=== PATIENT | male | born 1990 | race Caucasian/White ===

== ENCOUNTER 2024-12-21 18:50 | Emergency (ER) | payer OTHER ==
[~2024-12-21] VITALS: Ht 165.1 cm; Wt 87.5 kg
[2024-12-21 19:49] LABS: BASOPHILS 1.7 % (0-2); EOSINOPHILS 6.8 % (0-6); HEMATOCRIT 44.8 % (35.0-50.0); HEMOGLOBIN 15.7 g/dL (12.0-18.0); LYMPHOCYTES 38.9 % (24-44); MCH 31.4 (27-36); MCHC 35.1 g/dl (30-36); MCV 89.5 fl (81-99); MONOCYTES 10.2 % (0-12); NEUTROPHILS 42.4 % (39-80); PLATELET COUNT 311 K/uL (140-440)
[2024-12-21 20:04] LABS: ALBUMIN 3.9 g/dL (3.4-5.0); ALBUMIN/GLOBULIN RATIO 1.11 (1.1-2.4); ANION GAP 8.3 (7-21); BILIRUBIN, TOTAL 0.4 mg/dL (0.2-1.0); BUN/CREATININE RATIO 13.33 (6.0-28.6); CALCIUM 8.5 mg/dL (8.5-10.1); CREATININE, SERUM 1.05 mg/dL (0.70-1.30); POTASSIUM 4.3 mmol/L (3.5-5.1); PROTEIN, TOTAL 7.4 g/dL (6.4-8.2)
[2024-12-21 21:04] VITALS: BP 137/86
== END 2024-12-21 21:07 | disposition home or self-care (01) ==
LOC: ED 18:50
PROVIDERS: Family Medicine
DX: K62.3 Rectal prolapse (principal); J45.909 Unspecified asthma, uncomplicated
CPT/HCPCS: 36415; 80053; 83605; 85025; 99283

== ENCOUNTER 2025-01-26 11:00 | Observation (INO) | payer OTHER ==
[~2025-01-26] VITALS: Ht 165.1 cm; Wt 86.5 kg
[2025-01-26 12:16] VITALS: BP 135/79
[2025-01-26] MEDS ORDERED: LACTATED RINGER'S 1,000 ML IV SCH ×2 (12:30→13:00)
[2025-01-26 12:55] LABS: BASOPHILS 1.3 % (0.2-1.2); EOSINOPHILS 2.6 % (0.8-7.0); HEMATOCRIT 45.2 % (40.1-51.0); HEMOGLOBIN 15.7 g/dL (13.7-17.5); LYMPHOCYTES 30.1 % (21.8-53.1); MCH 30.6 PG (25.7-32.2); MCHC 34.7 g/dL (32.3-36.5); MCV 88.1 fL (79.0-92.2); MONOCYTES 9.1 % (5.3-12.2); NEUTROPHILS 56.6 % (34.0-67.9); PLATELET COUNT 286 K/uL (163-337); RBC 5.13 M/uL (4.63-6.08)
[2025-01-26] MEDS ORDERED: FAMOTIDINE 20 MG/ 2 ML VIAL IV SCH (12:58)
[2025-01-26] MEDS ORDERED: POLYETHYLENE GLYCOL 3350 BOTTLE PO SCH (13:00)
[2025-01-26] MEDS ORDERED: KETOROLAC TROMETHAMINE 30 MG/ML VIAL IV PRN (13:00)
[2025-01-26] MEDS ORDERED: ondansetron HCL 4 MG/2 ML VIAL IV PRN (13:00)
--- NOTE | 2025-01-26 13:01 | NUR ---
PT AMBULATED DOWN [facility] WITH TWO GUARDS PRESENT. PT ADMITTED TO ROOM 123 WITH TWO GUARDS PRESENT IN ROOM WITH PT. PT HAS ALREADY SEEN MD ALVARADO DURING ADMISSION AND HAS NO CURRENT QUESTIONS AT THIS TIME, PT HAS CALL LIGHT IN REACH.
[2025-01-26 13:10] LABS: ALBUMIN 4.2 g/dL (3.4-5.0); ALBUMIN/GLOBULIN RATIO 1.27 (1.1-2.4); ANION GAP 10.3 (7-21); BILIRUBIN, TOTAL 0.9 mg/dL (0.2-1.0); BUN/CREATININE RATIO 10.41 (6.0-28.6); CALCIUM 9.1 mg/dL (8.5-10.1); CREATININE, SERUM 0.96 mg/dL (0.70-1.30); POTASSIUM 4.3 mmol/L (3.5-5.1); PROTEIN, TOTAL 7.5 g/dL (6.4-8.2)
--- NOTE | 2025-01-26 13:45 | NUR ---
PATIENT IS FINISHED WITH BOWEL PREP DRINK. WARM BLANKETS PROVIDED.
[2025-01-26 14:00] VITALS: BP 135/79
--- NOTE | 2025-01-26 14:24 | NUR ---
PT LAYING IN BED AT THIS TIME WITH TWO EOCI GUARDS PRESENT. PT HAS NO CURRENT NEEDS WITH CALL LIGHT IN REACH.
--- NOTE | 2025-01-26 15:02 | NUR ---
PT SITTING UP IN BED AT THIS TIME, PT HAS NO CURRENT NEEDS AT THIS TIME. PT HAS TWO EOCI GUARDS PRESENT IN ROOM AT THIS TIME CALL LIGHT IN REACH.
[2025-01-26] MEDS ORDERED: DESITIN57 GM TOP (16:35)
[2025-01-26] MEDS ORDERED: STOOL SOFTENER250 MG PO (16:36)
[2025-01-26] MEDS ORDERED: LMX 515 GM TOP (16:39)
[2025-01-26] MEDS ORDERED: WHITE PETROLE16.8 GM TOP (16:41)
[2025-01-26] MEDS ORDERED: VITAMIN D350 MC3 PO (16:41)
--- NOTE | 2025-01-26 16:41 | NUR ---
PT PROLAPSED RECTUM IS RED AND IRRITATED AFTER BOWEL PREP, PT DOES HAVE PAIN AT THIS TIME BUT DENIES NEED FOR PHARM INTERVENTIONS. PT REQUESTED TO SHOWER AND IS CURRENTLY IN RESTROOM WITH TWO GUARDS PRESENT WITH PT.
[2025-01-26] MEDS ORDERED: VENTOLIN HFA18 GM INH (16:43)
--- NOTE | 2025-01-26 16:44 | NUR ---
MED REC COMPLETE
[2025-01-26 18:00] VITALS: BP 116/70
[2025-01-26 18:25] VITALS: BP 116/70
--- NOTE | 2025-01-26 18:26 | NUR ---
PT SITTING UP IN BED, PT CONTINUES TO HAVE BM WITH BOWEL PREP, PT HAS NO OTHER CONCERNS AT THIS TIME CALL LIGHT IN REACH.
--- NOTE | 2025-01-26 19:11 | NUR ---
RECEIVED REPORT. PT RESTING IN BED WITH EYES CLOSED, RISE AND FALL OF CHEST OBSERVED. CALL LIGHT IN REACH, ACCOMPANYING OFFICERS IN ROOM.
--- NOTE | 2025-01-26 21:15 | NUR ---
PT REQUESTS SHOWER, ASSISTED TO BATHROOM AND GIVEN SHOWER SUPPLIES. IV COVERED. ESCORTING OFFICERS IN ROOM.
[2025-01-26 21:24] VITALS: BP 128/68
[2025-01-26 21:25] VITALS: BP 128/68
--- NOTE | 2025-01-26 21:33 | NUR ---
PATIENT TOOK SHOWER INDEPENDENTLY. 2 GUARDS OFFICER PRESENT IN THE ROOM. PATIENT IS BACK IN BED. V/S AND I&O'S COMPLETED CHARTED BY THE PRIMARY RN.
--- NOTE | 2025-01-26 21:42 | NUR ---
VITALS, ASSESSMENT, EVENING MEDS. PROVIDED WARM BLANKETS AND CLEAR LIQUIDS N REQUEST. NO OTHER NEEDS, CALL MAGALIE DON
--- NOTE | 2025-01-26 23:01 | NUR ---
PT REQUESTED SHOWER, COVERED IV AND PROVIDED TOWELS. ACCOMPANYING OFFICERS IN ROOM
--- NOTE | 2025-01-26 23:20 | NUR ---
PT DONE WITH SHOWER. RE-ATTACHED IV. NO OTHER NEEDS, CALL LGT IN REACH
[2025-01-27] VITALS (9 sets, daily range): BP systolic 119–134; BP diastolic 7–90
--- NOTE | 2025-01-27 00:43 | NUR ---
RESPONDED TO CALL LIGHT. ESCORTING OFFICERS ASK ABOUT WHAT TIME SURGERY IS, GAVE BEST ESTIMATE AND EDUCATED ON PROCEDURE. NO NEEDS AT THIS TIME, CALL [facility] IN REACH
--- NOTE | 2025-01-27 01:21 | NUR ---
GIVEN PRN TORADOL FOR ABDOMINAL PAIN/BLOATING. CHANGED IV FLUIDS. NO OTHER NEEDS, CALL [facility] IN REACH, ENFORCEMENT OFFICERS IN ROOM
--- NOTE | 2025-01-27 02:14 | NUR ---
VITALS, PT REQUESTS SHOWER. GARMENT LOOPER ASSISTED WITH SHOWER SETUP AND COVERED IV.
--- NOTE | 2025-01-27 03:39 | NUR ---
PT ALERT IN BED, NO NEEDS PRESENTLY. CALL LIGHT IN REACH, ACCOMPANYING OFFICERS IN ROOM.
--- NOTE | 2025-01-27 04:31 | NUR ---
RESPONDED TO BEEPING IV, RESTARTED IV. PT ALERT, NO NEEDS. CALL LIGHT IN REACH, GUARDS IN ROOM
--- NOTE | 2025-01-27 06:17 | NUR ---
CHG WIPEDOWN BY PATIENT, CHANGED GOWN AND CLEAN BED LINENS. COMPLETED PRE-OP CHECKLIST. NO OTHER NEEDS, CALL LIGHT IN REACH
--- NOTE | 2025-01-27 06:47 | NUR ---
CRITICAL LAB: WBC 34.78 (DOWN FROM 36.15). NOTIFIED
--- NOTE | 2025-01-27 07:26 | NUR ---
MORNING REPORT RECIEVED FROM EMERY BURTON. PT LAYING IN BED WITH EYES CLOSED CHEST RISE EQUAL BILAT. PT SURGERY CONSENT IS STILL REQUIRED AT THIS TIME. PT HAS TWO EOCI GUARDS IN ROOM AT THIS TIME WITH CALL LIGHT IN REACH.
--- NOTE | 2025-01-27 08:26 | NUR ---
UR CLINICAL REVIEW: MCG-PER MCG ACCOUNT INACTIVE. PER POLE LIFT OPERATOR MEETS OBS FOR RETAL PROLAPSE WITH NEED FOR CSCOPE [facility] OBS 01/26/25 @ 1100 ORDER MATCHES REG NO AUTH REQUIRED PER [facility] GUIDELINES. CLINICALS FAXED 01/28/25
--- NOTE | 2025-01-27 08:30 | NUR ---
PT LEFT FOR SCOPE WITH DARRIAN BARRETT RN. PT OCCOMPANIED BY GUARD. EMERY COLMENARES HAS NO QUESTIONS AT THIS TIME. PT TO RETURN TO SAME ROOM AFTER PROCEDURE.
[2025-01-27] MEDS ORDERED: propofoL 200 MG/20 ML VIAL ONE ×2 (08:32→09:10)
[2025-01-27] MEDS ORDERED: LIDOCAINE HCL 2% 5 ML SDV ONE (08:32)
--- NOTE | 2025-01-27 08:42 | NUR ---
X2 EOCI GUARDS IN THE ROOM. PRE SURGERY HIBA CLEANSE WIPEDOWN COMPLETED BEFORE SHIFT CHANGE. SURGERY TOOK PATIENT NACK AT 0830.
--- NOTE | 2025-01-27 09:33 | NUR ---
01/27/25 0933 Greta Tejeda 0998-PATIENT ARRIVED TO PACU ON 3L NC RR EVEN. PATIENT NONAROUSABLE LAYING LEFT LATERAL ABDOMEN SOFT. IVF INFUSING. SR HR 70-80'S. GUARDS AT BEDSIDE.
[2025-01-27] MEDS ORDERED: fentaNYL citrate 50 MCG/ML SDV IV PRN (09:45)
[2025-01-27] MEDS ORDERED: NALOXONE HCL 0.4 MG SYR IV PRN (09:45)
[2025-01-27] MEDS ORDERED: MIDAZOLAM HCL 2 MG/2 ML VIAL IV PRN (09:45)
[2025-01-27] MEDS ORDERED: ondansetron HCL 4 MG/2 ML VIAL IV PRN (09:45)
[2025-01-27] MEDS ORDERED: IBLOOD GLUCOSE TEST STRIP 1 EA TEST VI PRN (09:45)
--- NOTE | 2025-01-27 10:10 | NUR ---
PT RECIEVED FROM CCU RN. PT TRANSPORTED RA, AND STOOD AND AMBULATED TO BED, PT HAS NO CURRENT CONCERNS AT THIS TIME VITALS STABLE CALL LIGHT IN REACH.
--- NOTE | 2025-01-27 10:52 | NUR ---
PT NOT AVAILABLE FOR VISIT. PROVIDED PRAYER.
--- NOTE | 2025-01-27 11:30 | NUR ---
Texted Dr. Mendes an update as I was notified the infirmary at [facility] is not open as it is being remodeled. I contacted the infirmary and was notified, all pts will go to [facility] in [place] until they reopen.
--- NOTE | 2025-01-27 11:55 | NUR ---
PT LAYING IN BED AT THIS TIME, PT HAS NO CURRENT CONCERNS AT THIS TIME TIME PT HAS LUNCH CLEAR LIX AND CALL LIGHT IN REACH.
--- NOTE | 2025-01-27 12:24 | NUR ---
PT AMBULATED FROM BED TO RESTROOM INDEPENDANTLY PT HAS NO CURRENT CONCERNS CALL LIGHT IN REACH AT THIS TIME
--- NOTE | 2025-01-27 13:13 | HP ---
[facility] [address], [place] [address] Signed ADMISSION DATE: 01/26/2025 REASON FOR ADMISSION: Chronic recurrent rectal prolapse, recently worsening. HISTORY OF PRESENT ILLNESS: This 34-year-old white man is a prisoner at [facility] and has been incarcerated for over 10 years. For the past several years, he has had episodic rectal prolapse. He was seen in the emergency room on December 21, 2024, evaluated by Dr. Lima with complaints of the rectal prolapse. The prolapsed mucosa appeared quite viable and normal and further evaluation was deferred to outpatient management to me in evaluation at the halfway clinic. The patient has profound prolapse of the rectum from time to time, which is associated with significant bleeding as well. The patient has never had colonoscopy or other colon evaluation it is known. I saw him in the halfway clinic setting yesterday where he was noted to have extreme prolapse of hemorrhoidal tissue with violaceous mucosa, excoriation and bleeding. He was able to partially reduce his prolapse with deep inspiration. Consideration was made for direct admission to the hospital yesterday or further close observation in the infirmary at the [facility]. However, as it turns out the infirmary is now closed down for the next four weeks related to need of reconstruction of the bathtub and other similar implements. On that basis, he could not be reliably able to undergo a bowel prep or other intervention at the halfway. Upon reflection, review of his records from his evaluation in December, I recommended direct admit for further evaluation and care. At present, he is feeling better than yesterday, having no blood per rectum and without extreme prolapse as he had yesterday. He has had no nausea or vomiting. The patient notes that when his rectum does prolapse, he has significant and severe bleeding generally speaking. He does not have constipation nor does he have incontinence. PAST MEDICAL HISTORY: Notable for asthma. He does use of bronchodilator episodically. He has never had surgery in the past. Electronically Signed By: MARIE ALVARADO MD 01/27/25 1313 PATIENT NAME: SANDY THOMAS HISTORY AND PHYSICAL DATE OF : [birth year] REPORT #: [id number] PHYSICIAN: MARIE ALVARADO MD PCP: [facility] CORRECTIONAL REPORT IS CONFIDENTIAL AND NOT TO BE RELEASED WITHOUT AUTHORIZATION [facility] [address], [place] [address] Signed CURRENT MEDICATIONS: Include a probable bronchodilator such as albuterol episodically used. His last used it a week ago. SOCIAL HISTORY: Incarcerated at [facility] and has been incarcerated for the past decade nearly. REVIEW OF SYSTEMS: He denies any shortness of breath or wheezing currently. He does have blood per rectum from time to time, particularly worsened with prolapse of the rectum. He has not had intervention of this rectal prolapse problem during his time of incarceration in any way including no colonoscopy. PHYSICAL EXAMINATION: GENERAL: A relatively young-appearing white man. VITAL SIGNS: Temperature is 98.5, pulse 63, blood pressure 135/79. NECK: Trachea is midline. CHEST: Shows normal respiratory excursion. Pulses regular. GENITOURINARY: Lateral decubitus position examination of perineum shows some minimal prolapse right now. The patient was disinclined to produce significant prolapse as he knows it will cause him to have bleeding and some discomfort. I saw his prolapse yesterday and it was profound. It is noted. EXTREMITIES: Show no clubbing, cyanosis, or edema. LABORATORY STUDIES: Today show white count of 7.8, hematocrit 45.2, platelets 286,000. Chem profile is pending. ASSESSMENT: The patient has rather profound rectal prolapse and upon evaluation yesterday was worrisome, possibly freed of an ischemia given the violaceous nature of the prolapsed tissue. Unlike most, it was not pink and viable, but congested, edematous, and violaceous in its appearance. This does not represent simple hemorrhoidal prolapse, but rather true rectal prolapse I am quite confident. Given his bleeding and his complete reduction of his prolapse right now, I would recommend a bowel prep be undertaken today anticipating colonoscopy tomorrow. Definitive treatment in his case will likely include a low anterior resection with possible rectopexy that remains to be determined in part related to findings on colonoscopy. It is important to assure that the problem is, in fact, rectal prolapse and not hemmorhoidal prolapse as the treatment approach is completely different. Electronically Signed By: MARIE ALVARADO MD 01/27/25 1313 PATIENT NAME: SANDY THOMAS HISTORY AND PHYSICAL DATE OF : [birth year] REPORT #: [id number] PHYSICIAN: MARIE ALVARADO MD PCP: [facility]CTION[facility] REPORT IS CONFIDENTIAL AND NOT TO BE RELEASED WITHOUT AUTHORIZATION [facility] [address], [place] [address] Signed Those patients most amenable to a perineal approach (Altemeier procedure) are those who are elderly and infirm as the durability of such resection is less than those who can tolerate definitive transabdominal interventions. Given his relatively young age, one would expect significant longevity and therefore, the most durable and reliable approach would be a transabdominal approach in his casem and would likely be well tolerated also. I discussed these findings with him with use of illustrations and so on. We will plan for a bowel prep today to include MiraLAX and clear liquids anticipating colonoscopy tomorrow. Management beyond that will depend on those findings and be scheduled accordingly. MD BILL Fernandes/EFRENL /[id number] cc: Medical Department [facility] Copies: ~ Electronically Signed By: MARIE ALVARADO MD 01/27/25 1313 PATIENT NAME: SNADY THOMAS HISTORY AND PHYSICAL DATE OF : [birth year] REPORT #: [id number] PHYSICIAN: MARIE ALVARADO MD PCP: [facility] REPORT IS CONFIDENTIAL AND NOT TO BE RELEASED WITHOUT AUTHORIZATION
--- NOTE | 2025-01-27 13:13 | OR ---
[facility] [address] [place], [place] [address] Signed DATE OF OPERATION: 01/26/2025 SURGEON: Marie Alvarado MD PREOPERATIVE DIAGNOSIS: Presumed profound rectal prolapse versus hemorrhoidal prolapse, currently reduced. POSTOPERATIVE DIAGNOSIS: Distal rectal inflammation with hemorrhoidal disease, probable associated rectal prolapse. PROCEDURE: Total colonoscopy to cecum with biopsy of rectum. ANESTHESIA: Intravenous sedation, propofol, Gayathri Rangel CRNA. INDICATION: This 34-year-old white man is a prisoner at [facility], has been for nearly a decade. He has had longstanding episodic rectal prolapse. I saw him [facility] days ago in [facility] where he was found to have significant prolapse of violaceous congested mucosa in a configuration most consistent with rectal prolapse rather than profound hemorrhoidal prolapse. He was admitted yesterday on the basis of those findings. With prolapse, he had a fair amount of rectal bleeding and definitely a fair amount of pain. Quite notably, he has had these symptoms for several years. He does not have associated constipation he says. He has undergone a bowel prep, anticipating colonoscopy to better characterize the current problem as well as any other associated problems including inflammatory bowel disease or other issues. He is now to undergo colonoscopy having undergone a bowel prep yesterday without complication. The risk of bleeding, infection, and perforation related to colonoscopy were reviewed with him. He understands and wished to proceed. FINDINGS: There was some hemorrhoidal prolapse noted. External hemorrhoidal disease specifically. The sphincter tone was reasonably normal actually. Complete colonoscopy was undertaken showing no sign of polyp or lead point. No diverticulosis, but certainly some low level proctitis in the distal rectum and some hemorrhoidal disease as well. The patient may have a combination of hemorrhoidal disease in association with rectal prolapse. Further evaluation to ascertain that there is true rectal prolapse is Electronically Signed By: MARIE ALVARADO MD 01/27/25 1313 PATIENT NAME: SANDY THOMAS OPERATIVE REPORT DATE OF : [birth year] REPORT #: [id number] PHYSICIAN: MARIE ALVARADO MD PCP: [facility] CORRECTIONAL REPORT IS CONFIDENTIAL AND NOT TO BE RELEASED WITHOUT AUTHORIZATION [facility] [address] [place], [place] [address] Signed forthcoming. DESCRIPTION OF PROCEDURE: The patient was brought to the endoscopy suite and placed in lateral decubitus position, given intravenous sedation with propofol infusional technique. Digital rectal exam and external inspection showed some hemorrhoidal changes in the left lateral aspect. Digital examination did elicit some discomfort. Additional sedation helped with that quite a bit. The sphincter tone was considered reasonably normal given his age. An Olympus video colonoscope was then passed in the rectum and manipulated throughout the colon ultimately visualizing the cecum. The scope was withdrawn from that point. Examination throughout showed no sign of abnormality. Retroflexed view of the rectum showed mild distal proctitis. Biopsies were obtained. Internal hemorrhoidal changes were noted as well. The scope was withdrawn, removed, and the patient taken to the recovery room in good condition. CONCLUDING DIAGNOSIS: Distal inflammation and also hemorrhoidal disease. We will ascertain more fully if he has in fact dominantly true rectal prolapse versus a hemorrhoidal prolapse problem later after sedation has worn off. MD BILL Fernandes/EFRENL /[id number] cc: Care of Nurse Medina [facility] Medical Department Copies: ~ Electronically Signed By: MARIE ALVARADO MD 01/27/25 1313 PATIENT NAME: SANDY THOMAS OPERATIVE REPORT DATE OF : [birth year] REPORT #: [id number] PHYSICIAN: MARIE ALVARADO MD PCP: [facility] REPORT IS CONFIDENTIAL AND NOT TO BE RELEASED WITHOUT AUTHORIZATION
--- NOTE | 2025-01-27 13:58 | NUR ---
SURVIVAL EQUIPMENT REPAIRER ASSISTED PATIENT IN WRAPPING IV, AND CHANGED HIS LINENS.
--- NOTE | 2025-01-27 14:11 | NUR ---
PT SITTING UP IN BED AT THIS TIME, PT HAS IV FLUIDS IN PLACE AND CALL LIGHT IN REACH. PT HAS TWO EOCI GAURDS PRESENT IN ROOM.
--- NOTE | 2025-01-27 14:52 | NUR ---
PT SITTING UP IN BED AT THIS TIME. PT ASKED ABOUT WHAT THE POC IS NOW THAT THE SCOPE IS DONE, MD ALVARADO WILL BE BACK LATER TODAY TO INFORM PT OF CONTINUED POC, PT AGREEABLE AT THIS TIME. PT GIVEN MORE CLEAR LIX AND PT HAS CALL LIGHT IN REACH.
--- NOTE | 2025-01-27 15:43 | NUR ---
TWO [facility]URR CALLED ABOUT PT, THEY WERE ASKING ABOUT THE PT DC STATUS, THEY WERE INFORMED THAT MD ALVARADO HAS NOT GIVEN ANY OFFICIAL ORDERS TO DC PT, BUT WILL BE CONTACTED REGARDING THIS, MARIA BURR WAS AGREEABLE AND WILL BE TOLD ONCE ORDERS ARRIVE.
--- NOTE | 2025-01-27 17:10 | NUR ---
PT USED CALL LIGHT AND ASKED FOR MORE CLEAR LIX, PT HAS NO OTHER CONCERNS AT THIS TIME CALL LIGHT IN REACH.
--- NOTE | 2025-01-27 18:06 | NUR ---
PT SITTING UP IN BED WITH TWO EOCI GUARDS PRESENT IN ROOM, PT HAS NO CURRENT NEEDS AT THIS TIME. MD ALVARADO WAS CONTACTED AND PT WILL BE DISCHARGED TONIGHT. PT WILL BE NOTIFIED BY MD ALVARADO HIMSELF ONCE MD ALVARADO RETURNS FROM SURGERY.
[2025-01-27] MEDS ORDERED: METRONIDAZOLE500 MG PO (18:35)
[2025-01-27] MEDS ORDERED: NEOMYCIN SULFA500 MG PO (18:37)
--- NOTE | 2025-01-28 09:33 | DS ---
[facility] [address] [place], [place] [address] Signed ADMISSION DATE: 01/26/2025 DISCHARGE DATE: 01/27/2025 REASON FOR ADMISSION: Rectal prolapse. HISTORY OF PRESENT ILLNESS: This 34-year-old white man is a prisoner at [facility] and has been incarcerated for at least 10 years. He has had several years of apparent rectal prolapse. I saw him in the long term clinic the day before current admission. He had profound rectal prolapse with violaceous, edematous, and episodically bleeding rectal prolapse. I asked for him to be taken to the hospital for direct admission as the infirmary at [facility] right now is unable to accommodate patients for preparations for interventions. He is admitted at this time to have further evaluation of his rectal prolapse to include colonoscopy and other interventions. PERTINENT PHYSICAL EXAMINATION: GENERAL: Pleasant white man, who did not look to be in severe distress. VITAL SIGNS: Temperature is 97.9, pulse 77, blood pressure 124/69. NECK: Trachea in midline. CHEST: Clear. HEART: Regular without murmur. ABDOMEN: Soft, nontender. The rectal prolapse seen in 24 hours previously was completely reduced. There was a small amount of hemorrhoidal tissue, but no sign of prolapse. He had minimal tenderness. HOSPITAL COURSE: He was admitted, given intravenous fluids, and anticipating a probability for definitive resection or rectopexy by an abdominal approach, colonoscopy was planned. A bowel prep was undertaken, which he tolerated well. Colonoscopy was undertaken on January 27, 2025, which showed no evidence of neoplasm or other process it might form as a lead point for rectal prolapse. The patient was able to demonstrate his rectal prolapse by volition and able to reduce this fully also. It is notable when he has significant prolapse, the mucosa is markedly edematous and violaceous and easily prone to bleeding. Recall of the colonoscopy did not show a lead point, but did show some internal hemorrhoidal change as well. Given the logistics of his need for somewhat lengthy operation, possibly operation is planned for later in the week. He will be discharged to the long term with clear liquids and Ensure for diet and anticipate oral antibiotics the night prior to surgery including Electronically Signed By: MARIE ALVARADO MD 01/28/25 0933 PATIENT NAME: SANDY THOMAS DISCHARGE SUMMARY DATE OF : [birth year] REPORT #: [id number] PHYSICIAN: MARIE ALVARADO MD PCP: [facility] CORRECTIONAL REPORT IS CONFIDENTIAL AND NOT TO BE RELEASED WITHOUT AUTHORIZATION [facility] [address] [place], [place] [address] Signed Flagyl 500 mg and neomycin base 1 g p.o. at 2 p.m., 7 p.m., and 11 p.m. He will be n.p.o. after midnight and present on Saturday morning for operation to be performed then. I discussed the operation with him, though not the date or time obviously. DISCHARGE DIAGNOSES: 1. Profound rectal prolapse, not currently with ischemic change, episodic bleeding. 2. Colonoscopy with some internal hemorrhoidal change, no evidence of neoplasm. 3. Reactive airways disease. DISCHARGE MEDICATIONS: 1. Flagyl 500 mg. 2. Neomycin base 1 g p.o. at 2 p.m., 7 p.m., and 11 p.m. Saturday. He will maintain clear liquid diet. MD BILL Fernandes/EFRENL /[id number] cc: Medical Department at [place], [place] Copies: ~ Electronically Signed By: MARIE ALVARADO MD 01/28/25 0933 PATIENT NAME: SANDY THOMAS DISCHARGE SUMMARY DATE OF : [birth year] REPORT #: [id number] PHYSICIAN: MARIE ALVARADO MD PCP: [facility]CTION[facility] REPORT IS CONFIDENTIAL AND NOT TO BE RELEASED WITHOUT AUTHORIZATION
--- NOTE | 2025-01-29 16:45 | PATH ---
[facility] [address] [facility] [place], [place] [address] Signed SPECIMEN(S): A RECTUM BIOPSY SPECIMEN SOURCE: A. RECTUM BIOPSY CLINICAL HISTORY: Chronic recurrent rectal prolapse. Post: Hemorrhage disease-proctitis. FINAL PATHOLOGIC DIAGNOSIS: Rectum biopsy: - Benign colonic mucosa, negative for specific diagnostic abnormality. JVR:[facility] MICROSCOPIC EXAMINATION: Histologic sections of all submitted blocks are examined by light microscopy. These findings, together with the gross examination, support the pathologic diagnosis. GROSS DESCRIPTION: The specimen, labeled and designated "Shilpi rectum biopsy," is received in formalin and consists of one enciso soft tissue fragment, 0.2 cm. Entirely submitted in (A1). JS (under the direct supervision of a pathologist) The Gross Description was prepared using a voice recognition system. The report was reviewed for accuracy; however, sound-alike word errors, addition and/or deletions may occur. If there is any question about this report, please contact Client Services. PERFORMING LABORATORY: The technical preparation was performed by [facility], [address] [place] [address] (CLIA#: [id number]). Professional interpretation [facility] by [facility], [address] [place] [phone] (CLIA#: [id number]). Diagnostician: Thanh Ray MD Pathologist Electronically Signed 01/29/2025 Copies: PATIENT NAME: SANDY THOMAS PATHOLOGY DATE OF : [birth year] REPORT #: [id number] PHYSICIAN: JOSÉ MIGUEL PATHOLOGY PCP: [facility] COR[facility]CTIONAL REPORT IS CONFIDENTIAL AND NOT TO BE RELEASED WITHOUT AUTHORIZATION [address] [address] Signed ~ PATIENT NAME: SANDY THOMAS PATHOLOGY DATE OF : [birth year] REPORT #: [id number] PHYSICIAN: JOSÉ MIGUEL PATHOLOGY PCP: [facility] REPORT IS CONFIDENTIAL AND NOT TO BE RELEASED WITHOUT AUTHORIZATION
== END 2025-01-27 18:50 | disposition home or self-care (01) ==
LOC: MS 11:00 → EDSTATUS 12:53 → MS 01-27 18:50
PROVIDERS: ADMIT Surgery; ATTEND Surgery
PROC: 0DBP8ZX Excision of Rectum, Via Natural or Artificial Opening Endoscopic, Diagnostic (ICD-10-PCS; principal; 2025-01-26)
DX: K64.8 Other hemorrhoids (principal); K64.4 Residual hemorrhoidal skin tags
CPT/HCPCS: 00811; 36415; 80053; 85025; 94799; J1885; J2003; J2704; J7121

== ENCOUNTER 2025-01-29 08:40 | Observation (INO) | payer OTHER ==
[2025-01-29] VITALS (8 sets, daily range): BP systolic 123–147; BP diastolic 65–100
[~2025-01-29] VITALS: Ht 165.1 cm; Wt 85.5 kg
--- NOTE | ~2025-01-29 | DS ---
[facility] [address], [place] [address] Draft ADMISSION DATE: 01/29/2025 DISCHARGE DATE: 02/01/2025 REASON FOR ADMISSION: Profound rectal prolapse. HISTORY OF PRESENT ILLNESS: This 34-year-old white man is a prisoner at [facility] and [facility] with profound impressive rectal prolapse. He has had this problem for 6 to 8 years. He was admitted a few days prior to current admission, as the infirmary at the [place] [facility] was closed. He underwent a bowel prep and subsequently a colonoscopy which showed no underlying cause of his prolapse and specifically no evidence of lead point or neoplasm or colitis. He was discharged back to the [place] [facility]. He is now here to undergo operative management of the rectal prolapse most likely by a low anterior resection and rectopexy or other indicated procedures. PHYSICAL EXAMINATION: GENERAL: A pleasant white man who appears to be in no acute distress. NECK: Trachea is midline. CHEST: Clear. HEART: Regular without murmur. ABDOMEN: Soft. Easily palpated. There is no mass. RECTAL: Upon straining the patient is able to protrude his rectum quite markedly; the mucosa appears purple and dusky and is uncomfortable. The sphincter tone has been affirmed as normal on recent colonoscopy. HOSPITAL COURSE: After a bowel prep and oral antibiotics and preoperative IV antibiotics on January 29, 2025, he underwent low anterior resection with side-to-end coloproctostomy (colon to rectal anastomosis). Peritoneal rectopexy was undertaken as well. A drain was placed in the pelvis. He was begun on a clear liquid diet the night of surgery and the following day advanced to a full liquid diet and the following day a low-fiber solid diet. He had progressive improvement with passage of flatus, good pain control with oral analgesics and a drain was removed prior to discharge. At discharge, he is recommended to lift no more than 20 pounds for the next four weeks. He should not strain or spend inordinate time on the commode for bowel movement. He will maintain a low-fiber diet for the first week and thereafter regular diet with Metamucil supplementation one packet each day. DISCHARGE MEDICATIONS: PATIENT NAME: SANDY THOMAS DISCHARGE SUMMARY DATE OF : 90 REPORT #: [id number] PHYSICIAN: MARIE ALVARADO MD PCP: [facility] CORRECTIONAL REPORT IS CONFIDENTIAL AND NOT TO BE RELEASED WITHOUT AUTHORIZATION [facility] [address], [place] [address] Draft 1. Ibuprofen 600 mg p.o. q.6 hours as needed for pain #60, refill zero. 2. Dilaudid (hydromorphone) 2 mg to 4 mg p.o. q.4 hours as needed for pain #20. 3. Tylenol 1000 mg p.o. q.6 hours as needed for pain #60, refill two. 4. Famotidine 20 mg p.o. q.12 hours #60, refill zero. He will continue his usual medications including Desitin cream per perianal area as necessary. 5. Docusate fiber supplement 250 mg p.o. at bedtime. 6. Vitamin D 2000 units p.o. daily. 7. Albuterol inhaler two puffs q.4 hours as needed for wheezing. Additionally, he will start Metamucil powder one scoop p.o. daily in one week. DISCHARGE DIAGNOSES: 1. Profound rectal prolapse, status post laparotomy with low anterior resection and rectopexy. 2. Reactive airways disease. 3. Internal hemorrhoidal disease. MD BILL Fernandes/EFRENL /[id number] cc: Medical Department [facility] Institution Copies: ~ PATIENT NAME: SANDY THOMAS DISCHARGE SUMMARY DATE OF : [birth year] REPORT #: [id number] PHYSICIAN: MARIE ALVARADO MD PCP: [facility] CORRECTIONAL REPORT IS CONFIDENTIAL AND NOT TO BE RELEASED WITHOUT AUTHORIZATION
[~2025-01-29 08:40] MED LIST: CEFAZOLIN SODIUM 2 GM/20 ML SYR IV SCH; DESITIN57 GM TOP; HEParin SOD (PORCINE) 5,000 UNIT/ML SDV SUB-Q SCH; IBLOOD GLUCOSE TEST STRIP 1 EA TEST VI PRN; LACTATED RINGER'S 1,000 ML IV SCH; LIDOCAINE HCL 1% 5 ML SDV INJ ONE; LMX 515 GM TOP; METRONIDAZOLE500 MG PO; NEOMYCIN SULFA500 MG PO; STOOL SOFTENER250 MG PO; VENTOLIN HFA18 GM INH; VITAMIN D350 MC3 PO; WHITE PETROLE16.8 GM TOP; metroNIDAZOLE/SODIUM CHLORIDE 500 MG/100 ML PIGGYBACK IV SCH
--- NOTE | 2025-01-29 10:05 | NUR ---
0845 PT ARRIVES TO DAY SURGERY VIA WHEELCHAIR WITH [facility]IC[facility] COS. PT IS RESTRAINED IN CORRECTIONAL RESTRAINTS. PT GETTING CHANGED WITH CO'S IN ROOM. 0855 SEE ASSESSMENTS FOR ALL ASSESSMENT DETAILS. PT IS ORIENTED. PT REPORTS NO NAUSEA. PT REPORTS 6/10 TOLERABLE PAIN THAT HAS BEEN CONSTANT FOR SEVERAL DAYS IN RIGHT LOWER ABDOMEN QUAD. PT RESTING IN BED, WITH BOTH CO CORRECTIONS GUARDS IN ROOM. PT HAS CALL LIGHT WITHIN REACH.
--- NOTE | 2025-01-29 10:27 | NUR ---
1025 INFUSION COMPLETE. IV FLUSHED WITH 10 MLS OF NS. LR HOOKED UP TO IV, RUNNING CONTINUOUSLY THROUGH IV. IV ASSESSED.
--- NOTE | 2025-01-29 12:01 | NUR ---
1145 updated pt about wait time and correction officers. pt and officers understanding. more warm blankets given to pt. pt resting in bed with call light within reach.
[2025-01-29] MEDS ORDERED: LIDOCAINE HCL 2% 5 ML SDV ONE ×3 (12:39→13:30)
[2025-01-29] MEDS ORDERED: DEXAMETHASONE SOD PHOS 4 MG/ML VIAL ONE ×2 (12:39→16:27)
[2025-01-29] MEDS ORDERED: propofoL 200 MG/20 ML VIAL ONE (12:39)
[2025-01-29] MEDS ORDERED: ondansetron HCL 4 MG/2 ML VIAL ONE (12:39)
[2025-01-29] MEDS ORDERED: ROCURONIUM BROMIDE 50 MG/5 ML SYR ONE ×3 (12:39→16:13)
[2025-01-29] MEDS ORDERED: SODIUM CHLORIDE 0.9% 40 ML IV ONE ×3 (13:21→16:54)
[2025-01-29] MEDS ORDERED: fentaNYL citrate 100 MCG/2 ML VIAL ONE ×2 (13:22)
[2025-01-29] MEDS ORDERED: dexmedeTOMIDine HCl 200 MCG/2 ML VIAL ONE (13:22)
[2025-01-29] MEDS ORDERED: KETAMINE in NS 50 MG/5 ML SYR ONE (13:22)
[2025-01-29] MEDS ORDERED: MAGNESIUM SULFATE 1 GM/2 ML VIAL ONE ×3 (13:22→16:55)
[2025-01-29] MEDS ORDERED: ACETAMINOPHEN 1,000 MG/100 ML VIAL ONE (13:26)
[2025-01-29] MEDS ORDERED: GLYCOPYRROLATE 1 MG/5 ML MDV ONE (14:27)
[2025-01-29] MEDS ORDERED: SEVOFLURANE 250 ML BTL INH ONE (15:10)
[2025-01-29] MEDS ORDERED: droPERidol 5 MG/2 ML VIAL IV PRN (16:15)
[2025-01-29] MEDS ORDERED: NALOXONE HCL 0.4 MG SYR IV PRN (16:15)
[2025-01-29] MEDS ORDERED: HYDROmorphone HCL 1 MG/ML SYR IV PRN (16:15)
[2025-01-29] MEDS ORDERED: fentaNYL citrate 50 MCG/ML SDV IV PRN (16:15)
[2025-01-29] MEDS ORDERED: IBLOOD GLUCOSE TEST STRIP 1 EA TEST VI PRN (16:15)
[2025-01-29] MEDS ORDERED: ondansetron HCL 4 MG/2 ML VIAL IV PRN ×2 (16:15→18:30)
[2025-01-29] MEDS ORDERED: SODIUM CHLORIDE 0.9% 20 ML IV ONE (16:27)
[2025-01-29] MEDS ORDERED: Ropivacaine HCl 0.5% 30 ML VIAL ONE (16:27)
--- NOTE | 2025-01-29 16:27 | NUR ---
MED REC COMPLETE
[2025-01-29] MEDS ORDERED: SUGAMMADEX SODIUM 200 MG/2 ML ML ONE (17:15)
[2025-01-29] MEDS ORDERED: ENOXAPARIN SODIUM 40 MG/0.4 ML SYR SUB-Q SCH (18:24)
[2025-01-29] MEDS ORDERED: ACETAMINOPHEN 1,000 MG/100 ML VIAL IV PRN (18:30)
[2025-01-29] MEDS ORDERED: ALBUTEROL/IPRATROPIUM 3 ML NEB INH PRN (18:30)
[2025-01-29] MEDS ORDERED: KETOROLAC TROMETHAMINE 30 MG/ML VIAL IV PRN (18:30)
[2025-01-29] MEDS ORDERED: LIDOCAINE 2% VISCOUS 6 ML SYR TOP ONE (18:30)
[2025-01-29] MEDS ORDERED: LACTATED RINGER'S 1,000 ML IV SCH (18:30)
--- NOTE | 2025-01-29 18:30 | NUR ---
01/29/25 1830 RONEY CROCKER 1756 PT ARRIVES TO PACU VIA STREACHER FROM OR, PT ON 6 L OXYGEN VIA FACE MASK. PT NONREACTIVE TO STIMULI. REPORT TAKEN FROM MARQUES BRODY. ALL MONTIORS ATTACHED. CORRECTION OFFICERS AT BEDSIDE. IV ASSESSED. DRESSING AND DRAIN ASSESSED. 175 PT OXYGEN LOWERED TO 4L VIA FACE MASK. PT OXYGEN STAYING ABOVE 90% 180 PT REACTIVE TO TACTILE STIMULI, PT REPORTS 9/10 PAIN IN HIS ABDOMEN AT THIS TIME. 180 PT PLACED ON RA, OXYGEN LEVEL STAYING ABOVE 96% PT FALLS ASLEEP QUICKLY AFTER BEING SPOKEN TO, PT SNORING. 181 PAIN MEDICATION GIVEN DUE TO PT REPORT 10/10 PAIN. 181 6L OF O2 PLACED ON PT DUE TO OXYGEN SAT DROPPING TO 82% AFTER PAIN MEDICATION GIVEN. PT FALLS ASLEEP RIGHT AFTER RN SPEAKS TO PT AFTER PT REPORTIN 10/10 PAIN. PT SNORING. 182 OXYGEN PLACED TO 3 L VIA NC, PT OXYGEN SAT AT 97% PT REPORTS 10/10 WHEN WAKING PT TO REMIND OF DEEP BREATHING. BUT PT FALLS RIGHT BACK ALSEEP AND BEGINS SNORING AFTER BEING SPOKEN TO. 182 PT PLACED ON RA, PT OXYGEN SATURATION STAYING ABOE 90% ON RA.
[2025-01-29] MEDS ORDERED: LORazepam 2 MG/ML VIAL IV PRN (18:45)
[2025-01-29] MEDS ORDERED: KETOROLAC TROMETHAMINE 30 MG/ML VIAL IV ONE (18:45)
[2025-01-29] MEDS ORDERED: MORPHINE SULFATE 4 MG/ML VIAL IV PRN (19:45)
--- NOTE | 2025-01-29 19:51 | NUR ---
PT ARRIVED FROM PACU IN BED WITH 2 SECURITY PERSONEL. REPORT RECEIVED FROM LEGGER PRESS OPERATOR. PT STABLE AT THIS TIME. ADMISSION COMPLETE. SAFETY PRECAUTIONS MAINTAINED. CALL LIGHT WITHIN REACH. WILL CONTINUE TO MONITOR.
--- NOTE | 2025-01-29 20:05 | NUR ---
PT ASSESSED AND MEDICATONS GIVEN. PT RATING PAIN 10/[address] ALVARADO CALLED AND ORDER OBTAINED FOR IV MORPHINE. PT STATED THAT IT HELPED AND PAIN DECREASED FROM 10/10 TO 7/10. IVF INFUSING PER ORDER. LOW IN PLACE, OUTPUT NOTED. BRYCE DRAIN IN RLQ, SS FLUID NOTED IN BULB. VSS. O2 AT 2L NC APPLIED DUE TO O2 DESAT WITH PAIN MEDICATIONS, SATING WELL. 2 SECURITY OFFICERS IN ROOM WITH PT. SAFETY PRECAUTIONS MAINTAINED. CALL LIGHT WITHIN REACH. WILL CONTINUE TO MONITOR.
--- NOTE | 2025-01-29 20:35 | NUR ---
SANDY (AKA: EVA) IS CURRENTLY ON A 2L NC. HE STATED THAT HE IS A FORMER SMOKER OF ABOUT 10 YEARS 3 PACKS A DAY, BUT NO LONGER SMOKES. EVA WAS ABLE TO DEMONSTRATE PROFICIENCY WITH THE CORNET LEVEL 5 W/O S/S OF INCREASED RESPIRATORY DISTRESS.
[2025-01-29] MEDS ORDERED: FAMOTIDINE 20 MG/ 2 ML VIAL IV SCH (21:00)
[2025-01-29] MEDS ORDERED: CEFAZOLIN SODIUM 2 GM/20 ML SYR IV SCH (22:00)
[2025-01-29] MEDS ORDERED: metroNIDAZOLE/SODIUM CHLORIDE 500 MG/100 ML PIGGYBACK IV SCH (22:00)
--- NOTE | 2025-01-29 22:30 | NUR ---
THIS RN WENT INTO PT'S ROOM AND WAS TOLD THAT THE PT WAS DOING SIT-UPS/CRUNCHES IN THE BED. MIDLINE SURGICAL DRESSING CHECKED AND SOME BLEEDING NOTED ON DRESSING. RN EDUCATED PT ABOUT NOT DOING SIT-UPS/CRUNCHES. PT STATED THAT THEY WOULD STOP. WILL CONTINUE TO MONITOR ABDOMINAL MIDLINE FOR BLEEDING.
[2025-01-30] VITALS (12 sets, daily range): BP systolic 116–147; BP diastolic 76–95
--- NOTE | 2025-01-30 00:18 | NUR ---
PT RESTING IN BED. PT RATING PAIN 9/10. PAIN MEDICATION GIVEN. SECURITY GUARDS CHANGING SHIFT WITH 2 NEW SECURITY GUARDS. SAFETY PRECAUTIONS MAINTAINED. CALL LIGHT WITHIN REACH. WILL CONTINUE TO MONITOR.
--- NOTE | 2025-01-30 01:50 | NUR ---
KINESI[employer]Y [employer] OBTAINED VITALS AND I&O. PT STATES NO NEEDS AT THIS TIME. CALL LIGHT WITHIN REACH AND GUARDS IN ROOM.
[2025-01-30 05:20] LABS: BASOPHILS 0.2 % (0.2-1.2); EOSINOPHILS 0 % (0.8-7.0); HEMATOCRIT 41.6 % (40.1-51.0); HEMOGLOBIN 14.5 g/dL (13.7-17.5); LYMPHOCYTES 8.2 % (21.8-53.1); MCH 31.4 PG (25.7-32.2); MCHC 34.9 g/dL (32.3-36.5); MONOCYTES 8.1 % (5.3-12.2); NEUTROPHILS 83.1 % (34.0-67.9); PLATELET COUNT 279 K/uL (163-337); RBC 4.62 M/uL (4.63-6.08)
[2025-01-30 05:33] LABS: BUN/CREATININE RATIO 8.51 (6.0-28.6); CALCIUM 8.3 mg/dL (8.5-10.1); CREATININE, SERUM 0.94 mg/dL (0.70-1.30)
--- NOTE | 2025-01-30 05:54 | NUR ---
PT RESTED SOME DURING THE SHIFT. VSS. PAIN MANAGED WITH IV MORPHINE. PT HAD PERIODS OF NAUSEA BUT THE EPISODES PASSED QUICKLY, NO ZOFRAN NEEDED. PT ABLE TO TOLERATE CLEARS. LOW IN PLACE AND DRAINING WELL PER GRAVITY. BRYCE DRAIN IN PLACE, MODERATE OUTPUT NOTED, FLUID SS. MIDLINE SURGICAL INCISION DRESSING INTACT, DRESSING SOILED AT BASE OF DRESSING. PT IS SATING WELL ON RA. IVF INFUSING PER ORDER. 2 SECUIRTY GAURDS REMAINED AT PT BEDSIDE THROUGHOUT SHIFT, PT ALSO REMAINED CUFFED TO BED THROUGHOUT SHIFT. SAFETY PRECAUTIONS MAINTAINED. CALL LIGHT WITHIN REACH. WILL CONTINUE TO MONITOR.
--- NOTE | 2025-01-30 07:25 | NUR ---
RECIEVED REPORT FROM EMERY LUU. ASSUMING CARE OF PT WITH EMERY PRITCHETT. PT C/O PAIN, PRN TORADOL GIVEN. PT STATES HE WOULD LIKE TO GET OUT OF BED, WALKER USED FOR SUPPORT AND TO HANG LOW CATHETER BAG, PT ABLE TO STAND OUT OF BED AND TAKE TWO STEPS, STATES HE CONTINUES TO BE VERY PAINFUL. PLAN MADE TO DECREASE PAIN AND WALK, PT AGREEABLE TO PLAN. PT DENIES NAUSEA OR SOB AT THIS TIME. AFTER PT BACK IN BED AND HAS BEEN SOME TIME SINCE TORADOL, PRN MORPHINE GIVEN FOR 10/10 ABDOMINAL PAIN. PT STATES THAT "SHARPNESS" IS RESOLVING AFTER ADMINISTRATION. PT STATES NO FURTHER NEEDS AT THIS TIME, CALL LIGHT WITHIN REACH, TWO COs AT THE BEDSIDE.
--- NOTE | 2025-01-30 10:48 | NUR ---
PATIENT AMBULATED HALLWAYS WITH FWW AND X2 EOCI GUARDS. PATIENT WALKED TWO LAPS AND THEN RETURNED TO THEIR ROOM. EMERY MEDEL ENTERED TO REATTACH THE IV AND EMPTY BRYCE DRAIN. VITALS AND I&O'S DOCUMENTED.
--- NOTE | 2025-01-30 11:10 | NUR ---
PT RESTING IN BED, STATES HE FEELS LIKE HE IS GOING TO TAKE A NAP AND THAT PAIN IS 5/10. PT STATES NO FURTHER NEEDS AT THIS TIME, CALL LIGHT WITHIN REACH.
[2025-01-30] MEDS ORDERED: HYDROmorphone HCL 2 MG TAB PO PRN ×2 (12:30)
[2025-01-30] MEDS ORDERED: HYDROmorphone HCL 1 MG/ML SYR IV PRN ×2 (12:30)
--- NOTE | 2025-01-30 13:14 | NUR ---
THIS RN TO BEDSIDE D/T PT REQUESTING PRN PAIN MEDICATION, GIVEN. PT STATES HE WOULD LIKE TO AMBULATE, THIS RN PULLS BACK PT BLANKET, SEROSANGUINOUS DRAINAGE ON GOWN AND BEDDING, DRAINAGE COMING FROM BRYCE DRAIN SITE. THIS RN HAS IRMA, RN OBSERVE SITE. DRAIN EMPTIED BY THIS RN. DR. ALVARADO CALLED, MESSAGE LEFT TO CALL THIS RN. PT STATES NO FURTHER NEEDS AT THIS TIME. PT EDUCATION ON WAITING TO AMBULATE UNTIL DR. ALVARADO IS AWARE OF UPDATED DRAIN STATUS, PT VERBALIZES UNDERSTANDING. CALL LIGHT WITHIN REACH.
--- NOTE | 2025-01-30 16:25 | NUR ---
PT RETURNS TO ROOM AFTER 3 LAPS AROUND UNIT, STATES PAIN IS 10/10. NO DRAINAGE FROM BRYCE DRAIN INSERTION SITE AT THIS TIME. BRYCE DRAIN TUBING STRIPPED, DRAIN BULB EMPTIED, SEROSANGUINOUS DRAINAGE PRESENT IN BOTH. PT STATES NO FURTHER NEEDS AT THIS TIME, CALL LIGHT WITHIN REACH.
--- NOTE | 2025-01-30 17:56 | NUR ---
PT LYING IN BED WATCHING TV, STATES PAIN IS "MORE MANAGEABLE" AFTER OFIRMEV AND TORADOL ADMINISTRATION. PT STATES NO CURRENT NEEDS, CALL LIGHT WITHIN REACH.
--- NOTE | 2025-01-30 19:41 | NUR ---
REPORT RECEIVED FROM DAY SHIFT RN. PT RESTING IN BED. 2 SECURITY GUARDS AT BEDSIDE. PT CUFFED TO BED. SAFETY PRECAUTIONS MAINTAINED. CALL LIGHT WITHIN REACH. WILL CONTINUE TO MONITOR.
--- NOTE | 2025-01-30 20:05 | NUR ---
PT ASSESSED AND MEDICATIONS GIVEN. PT RATED PAIN 8/10, PAIN MEDICATION GIVEN. VSS. PT UP SBA WITH WALKER, PT WALKING THE HALLS. LOW IN PLACE AND DRAINING WELL PER GRAVITY WITH GOOD OUTPUT NOTED. ABD MIDLINE DRSG DRY AND INTACT, OLD DRIED BLOOD NOTED ON DRSG, NO NEW BLOOD NOTED. BRYCE DRAIN IN PLAEC WITH MODERATE OUTPUT NOTED. BRYCE LINE STRIPPED. IVF INFUSING PER ORDER. 2 SECURITY GUARDS AT BEDSIDE. PT CUFFED TO BED. SAFETY PRECAUTIONS MAINTAINED. CALL LIGHT WITHIN REACH. WILL CONTINUE TO MONITOR.
[2025-01-30] MEDS ORDERED: FAMOTIDINE 20 MG TAB PO SCH (21:00)
[2025-01-31] VITALS (9 sets, daily range): BP systolic 121–146; BP diastolic 69–93
--- NOTE | 2025-01-31 00:02 | NUR ---
PT RESTING IN BED WITH EYES CLOSED. 2 SECURITY GUARDS AT BEDSIDE. PT CUFFED TO BED. SAFETY PRECAUTIONS MAINTAINED. CALL LIGHT WITHIN REACH. WILL CONTINUE TO MONITOR.
--- NOTE | 2025-01-31 06:29 | NUR ---
PT RESTED SOME THROUGHOUT THE SHIFT. VSS. PAIN MANAGED WITH ORDERED PRN MEDICATIONS WITH GOOD RESULTS. PT UP SBA WITH WALKER TO WALK IN HALLS. LOW IN PLACE AND DRAINING WELL PER GRAVITY, GOOD OUTPUT NOTED. IVF INFUSING PER ORDER. BRYCE DRAIN IN PLACE, LINE STRIPPED THROUGHOUT SHIFT, MODERATE OUTPUT NOTED. ABD MIDLINE DRSG DRY AND INTACT, OLD DIRED DRAINAGE NOTED, NO NEW DRAINAGE NOTED. 2 SECUIRTY GUARDS REMAINED AT BEDSIDE THROUHGOUT SHIFT. PT CUFFED TO BED THROUGHOUT SHIFT. SAFETY PRECAUTIONS MAINTAINED. CALL LIGHT WITHIN REACH. WILL CONTINUE TO MONITOR.
--- NOTE | 2025-01-31 07:15 | NUR ---
RECIEVED REPORT FROM EMERY LUU. ASSUMING CARE OF PT WITH EMERY PRITCHETT.
--- NOTE | 2025-01-31 09:01 | NUR ---
PT AWAKE AND ALERT IN ROOM, FINISHED BREAKFAST, DRAINED URINE, DOCUMENTED I & O'S, GOT PT FRESH ICE WATER, CHANGED WHITE BOARD, TWO SECURITY GUARDS IN ROOM, PT HANDCUFFED TO BED, SAFETY PRECAUTIONS FOLLOWED, CALL LIGHT WITHIN REACH
--- NOTE | 2025-01-31 09:06 | NUR ---
PT REQUESTED PAIN MEDICATION, INFORMED NURSE, 20 ML OUT OF LOW, CALL LIGHT WITHIN REACH
--- NOTE | 2025-01-31 09:20 | NUR ---
DR. ALVARADO STATES TO DC LOW AND DECREASE FLUIDS TO 85ML/HR, ORDERS PLACED, REPEAT PERFORMED.
--- NOTE | 2025-01-31 09:40 | NUR ---
PT SITTING UP IN BED AWAKE. DEVANTE ARNOLD'Amrit PER ORDER WNL, PT TOLERATED WELL. PT STATES HE WOULD LIKE TO AMBULATE AT THIS TIME, COMPLETES 2 LAPS AROUND UNIT. PT UP TO RESTROOM, VOIDS W/O DIFFICULTY. PT BACK TO BED, SCDs IN PLACE, IVF RATE DECREASED TO 85ML/HR PER ORDER. PT STATES PAIN IS INCREASING, REQUESTS NEXT AVAILABLE PRN PAIN MEDICATION, STATES NO OTHER NEEDS AT THIS TIME, CALL LIGHT WITHIN REACH.
--- NOTE | 2025-01-31 10:26 | NUR ---
PT UP TO RESTROOM TO VOID, BACK TO BED. PT UP TO AMBULATE HALLS WITH COs.
--- NOTE | 2025-01-31 11:19 | NUR ---
PT REQUESTED FRESH ICE WATER AND COFFEE, TWO OFFICERS IN ROOM, PT HANDCUFFED TO BED, SECURITY PROTOCOLS USED AT ALL TIMES CALL LIGHT WITHIN REACH, PT REPORTED NEEDING NOTHING ELSE AT THIS TIME
--- NOTE | 2025-01-31 11:44 | NUR ---
RT NOTIFIED OF PATIENT REQUESTING A BREATHING TREATMENT. RT STATED HE WOULD COME SEE HIM SOON. PATIENT NOTIFIED.
--- NOTE | 2025-01-31 12:58 | NUR ---
PT FINISHED HIS LUNCH, GOT UP TO URINATE, ASSISTED DUE TO IV TWO SECURITY OFFICERS IN ROOM, SAFETY PRECAUTIONS USED AT ALL TIMES PT REQUESTED CHOCOLATE PUDDING, GAVE HIM PAPER SPOON CALL LIGHT WITHIN REACH, IV RESTARTED, PATIENT REPORTED NO INCREASE IN PAIN OR DIZZINESS WHILE STANDING.
[2025-01-31] MEDS ORDERED: LORazepam 1 MG TAB PO PRN (14:00)
[2025-01-31] MEDS ORDERED: ondansetron HCL 4 MG/2 ML VIAL PO PRN (14:00)
[2025-01-31] MEDS ORDERED: ACETAMINOPHEN 500 MG TAB PO SCH (14:00)
[2025-01-31] MEDS ORDERED: IBUPROFEN 600 MG TAB PO SCH (14:00)
--- NOTE | 2025-01-31 14:30 | OR ---
[facility] [address], [place] [address] Signed DATE OF OPERATION: 01/29/2025 SURGEON: Marie Alvarado MD PREOPERATIVE DIAGNOSIS: Chronic recurrent severe rectal prolapse without constipation. POSTOPERATIVE DIAGNOSIS: Chronic recurrent severe rectal prolapse with markedly redundant sigmoid colon and patulous rectum. PROCEDURES: 1. Low anterior resection with side-to-end coloproctostomy. 2. Peritoneal rectopexy. ANESTHESIA: General endotracheal; Chalo Cardoso, EXTENSION WORK DIRECTOR; and postoperative bilateral TAP blocks. INDICATION: This 34-year-old white man is a prisoner at [facility] and seen by me recently through the correction clinic with profound impressive rectal prolapse. As it turns out, he has had this for possibly 6 to 8 years. He does not have associated constipation he says. The patient is able to prolapse the rectum with straining and also mostly reduce the prolapse with deep inspirationa and manual reduction . This is associated with pain as well as bleeding. He underwent colonoscopy by me a few days ago, which showed no evidence of lead point or other abnormality that would account for the prolapse. He does additionally have some hemorrhoidal disease (external). The patient is seen for remedy of the rectal prolapse at this time likely and include sigmoid resection if redundant colon is noted as well as rectopexy as appropriate. The special risks of bleeding, infection, recurrent prolapse, and other unforeseen complications were reviewed with him in detail. He understands and wished to proceed. FINDINGS: There was no sign of ascites or carcinomatosis. He did have some intraabdominal fat. The tanana left colon was normal, however, the sigmoid was impressively redundant otherwise. A somewhat patulous rectum was noted. Dissection was taken into the sacral hollow down to the coccyx, lateral stalks were preserved largely. Electronically Signed By: MARIE ALVARADO MD 01/31/25 1430 PATIENT NAME: SANDY THOMAS OPERATIVE REPORT DATE OF : 90 REPORT #: [id number] PHYSICIAN: MARIE ALVARADO MD PCP: [facility] CORRECTIONAL REPORT IS CONFIDENTIAL AND NOT TO BE RELEASED WITHOUT AUTHORIZATION [facility] [address], [place] [address] Signed Resection included all of the redundant sigmoid and approximately half of the rectum proper. Rectopexy of distal colon to the peritoneal sidewall was undertaken. Specific sutures of rectum into sacral hollow were not undertaken as it was deemed likely hazardous on the basis of anatomic findings. A drain was placed in the depth of the pelvis. The anastomosis was widely patent. It was viable. DESCRIPTION OF PROCEDURE: The patient was brought to the operating room, given a general endotracheal anesthetic. He had undergone a bowel prep including oral antibiotics, preoperative antibiotic Ancef and Flagyl were given. After satisfactory general endotracheal anesthesia, a Barber catheter was placed. The abdomen was clipped and prepared with chlorhexidine solution and draped sterilely. An infraumbilical incision was made. Dissection carried through the subcutaneous tissue with electrocautery. Midline fascia was incised. The abdomen was entered. There was no evidence of ascites or carcinomatosis. The small bowel appeared grossly normal. A Bookwalter retractor was affixed to the table. The small bowel was retracted into the right and upper aspects using laparotomy packs. Examination of the sigmoid showed to be impressively redundant and elongated. The peritoneal folds in the region of the rectum were identified. The rectum itself appeared rather patulous. After surrounding soft tissues were well retracted using the Bookwalter. White line of Toldt was incised freeing the sigmoid and the redundant sigmoid quite well. The mesentery was freed from lateral to medial position. The area of the inferior mesenteric artery was easily identified. Dissection was carried along the peritoneum of the left paracolic gutter anteriorly around the anterior aspect of the rectum in the space between the bladder and the rectum and was bluntly. Similar dissection was taken around the right side of the pelvis. Entry into the presacral hollow was undertaken and further dissection later extended deep into the sacral hollow. Avoidance of pelvic nerves was maintained throughout by staying in the correct plane. An area for transection of the distal descending colon was identified and the mesentery corresponding to was scored and secured with tonsil clamps and with 0 silk ties doubly applied to the vascular pedicles that remained. A NOEMI stapling device was used to transect the distal left colon. Further dissection was taken over the area of the inferior mesenteric artery and vein. These vessels were ultimately secured with tonsil clamps, divided and ligated with 0 silk ties. Dissection was then undertaken in the presacral hollow. Using blunt and cautery dissection near the rectum itself, the parasympathetic nerves of the pelvis were identified and left unharmed. Using blunt dissection, one could feel the coccyx itself in the posterior aspect. Electronically Signed By: MARIE ALVARADO MD 01/31/25 7095 PATIENT NAME: SANDY THOMAS OPERATIVE REPORT DATE OF : [birth year] REPORT #: [id number] PHYSICIAN: MARIE ALVARADO MD PCP: [facility] CORRECTIONAL REPORT IS CONFIDENTIAL AND NOT TO BE RELEASED WITHOUT AUTHORIZATION [facility] [address], [place] [address] Signed A plane was developed between the bladder anteriorly and the anterior aspect of the rectum, and dissection was carried distalward to a degree. An area appropriate for transection and withdrawal of redundant rectum in the midportion was identified. Electrocautery was used to free surrounding soft tissue and fatty tissue associated with this segment of rectum particularly given his known rectal prolapse tendency. In the mid rectum, a right angle bowel clamp was applied to the rectum and a clamp applied above it as well. Using prostate scissors, the specimen was transected and passed for pathology. Irrigation was undertaken showing no untoward bleeding in the pelvis or elsewhere. Anastomosis was deemed appropriate at this point. The mid rectum was then anastomosed to the left colon after mobilizing the white line of Toldt a bit more so as to provide a tension-free anastomosis. The anastomosis was undertaken in a side-to-end configuration in 2-layer technique of interrupted 3-0 silk suture. Anastomosis was widely patent and completely viable. Irrigation was undertaken. There was no untoward bleeding. Through the left lower quadrant stab incision, a 7 mm flat Dg drain was placed in the pelvis deep in to the sacral hollow . Rectopexy wa was then performed with interrupted 0 silk securing the colon just proximal to the colorectal anastomosis to the peritonel edge of the pelvic inlet including 2-0 silk suture benita laterally. Recto pexy in the posterior midline in the sacral hollow was deemed inadvisable given local findings and was not performed. Irrigation of the abdomen after glove change for the operative team was completed. There was no sign of bleeding or other problmen. The omentum was applied over the intra-abdominal viscera. The midline fascia was reapproximated with running bidirectional #1 PDS suture. Subcutaneous tissue was irrigated and the skin was closed with running subcuticular 3-0 Vicryl. Steri-Strips were applied as was an Acticoat dressing. He was ultimately positioned for bilateral TAP blocks for postoperative analgesic benefit. Once those were complete, he was extubated and transferred to the recovery room in good condition having suffered no known complications. Blood loss was less than 50 mL in aggregate. Marie Alvarado MD JM/MODL Electronically Signed By: MARIE ALAVRADO MD 01/31/25 1430 PATIENT NAME: SANDY THOMAS OPERATIVE REPORT DATE OF : [birth year] REPORT #: [id number] PHYSICIAN: MARIE ALVARADO MD PCP: [facility] CORRECTIONAL REPORT IS CONFIDENTIAL AND NOT TO BE RELEASED WITHOUT AUTHORIZATION [facility] [address], [place] [address] Signed /[id number] Copies: ~ Electronically Signed By: MARIE ALVARADO MD 01/31/25 1430 PATIENT NAME: SANDY THOMAS OPERATIVE REPORT DATE OF : [birth year] REPORT #: [id number] PHYSICIAN: MARIE ALVARADO MD PCP: [facility] CORRECTIONAL REPORT IS CONFIDENTIAL AND NOT TO BE RELEASED WITHOUT AUTHORIZATION
--- NOTE | 2025-01-31 14:45 | NUR ---
PT RETURNED TO ROOM FOR PAIN MEDICATION THERE WERE TWO CORRECTIONAL OFFICERS IN THE ROOM AND WALKING LAPS WITH HIM AT ALL TIMES SAFETY PROTOCALS USED AT ALL TIMES CALL LIGHT WITHIN REACH
--- NOTE | 2025-01-31 14:53 | NUR ---
PT HAD JUST RETURNED FROM A WALK AND THE NURSE CAME IN TO GIVE PAIN MEDICATIONS. TWO OFFICERS IN THE ROOM AND SECURITY PROTOCALS IN PLACE AT ALL TIMES CALL LIGHT WITHIN REACH, GOT PT FRESH ICE WATER PT REPORTED NEEDING NOTHING ELSE AT THIS TIME
--- NOTE | 2025-01-31 15:20 | NUR ---
In with pt in response to call light for IV Pump alarming. IVF infusion complete. Verified with executive officer, Lori Urban that pt IVF have been d/c'd. Pt IV flushed with 10ml NS, good return. Capped with alcohol cap, s/l. Pt up to bathroom. Officers in room. Call light in reach.
--- NOTE | 2025-01-31 15:52 | NUR ---
PT AMBULATING IN WHITING, STATES NO NEEDS AT THIS TIME.
--- NOTE | 2025-01-31 16:40 | NUR ---
THIS RN CALLS DR. ALVARADO D/T PT STATING HE WOULD LIKE TO SHOWER. MD STATES TO HAVE PT SHOWER. SHOWER SUPPLIES PROVIDED, PT UP TO SHOWER. CALL LIGHT WITHIN REACH. PT STATES NO FURTHER NEEDS.
--- NOTE | 2025-01-31 17:56 | NUR ---
PT OUT OF SHOWER, SMALL AMOUNT OF NEW SEROSANGUINOUS DRAINAGE ON STERI STRIPS. BRYCE DRAIN WITH SMALL CLOT PRESENT IN TUBING, TUBING STRIPPED, SUCTION REAPPLIED. PT DENIES ANY CURRENT NEEDS, CALL LIGHT WITHIIN REACH.
--- NOTE | 2025-01-31 18:19 | NUR ---
PT ASKED IF HE COULD HAVE MORE TO EAT, ANA GOOD CHECKED WITH CHARGE NURSE WHO SAID DINING ROOM CLOSED, IN NUTRITION NURSES AREA THER ARE KITS THAT CONTAIN SANDWICHES, ANA GOOD CHECKED WITH PT'S NURSE WHO GAVE PERMISSION FOR PT TO HAVE THE SANDWICH ONLY. ANA GOOD GAVE PT THE EXTRA SANDWICH, ALSO GOT FRESH ICE WATER TWO CORRECTIONAL OFFICERS IN ROOM, SAFETY PROTOCALS IN PLACE THROUGHOUT, CALL LIGHT WITHIN REACH
--- NOTE | 2025-01-31 19:43 | NUR ---
REPORT RECEIVED FROM DAY SHIFT RN. PT RESTING IN BED WITH EYES CLOSED. 2 SECURITY GUARDS AT BEDSIDE. PT CUFFED TO BED. SAFETY PRECAUTIONS MAINTAINED. CALL LIGHT WITHIN REACH. WILL CONTINUE TO MONITOR.
--- NOTE | 2025-01-31 20:25 | NUR ---
PT ASSESSED AND MEDICATIONS GIVEN. VSS. PT STATES PAIN IS 4-5/10. SCHEDULED PAIN MEDICATION GIVEN. PT UP INDEPENDENTLY IN ROOM, TO BATHROOM, AND TO WALK IN THE WHITING. PT VOIDING WELL, NO RETENSION NOTED. BRYCE DRAIN INTACT, MODERATE OUTPUT NOTED. 2 SECURITY GUARDS AT BEDSIDE PT CUFFED TO BED. SAFETY PRECAUTIONS MAINTAINED. CALL LIGHT WITHIN REACH. WILL CONTINUE TO MONITOR.
[2025-02-01 05:42] VITALS: BP 124/86
--- NOTE | 2025-02-01 06:09 | NUR ---
PT RESTED WELL THROUGHOUT THE SHIFT. VSS. PAIN MANAGED WITH SCHEDULED TYLENOL AND MOTRIN, WELL PRN PO DILAUDID. PT IS UP INDEPENDENTLY TO BATHROOM AND TO WALK IN THE HALLS. BRYCE DRAIN INTACT, LOW OUTPUT NOTED, LINE STRIPPED THROUGHOUT SHIFT. 2 SECURITY GUARDS AT BEDSIDE. PT CUFFED TO BED. SAFETY PRECAUTIONS MAINTAINED. CALL LIGHT WITHIN REACH. WILL CONTINUE TO MONITOR.
--- NOTE | 2025-02-01 07:31 | NUR ---
MORNING REPORT RECIEVED FROM EMERY LUU. PT HAD NO ACUTE EVENTS OVER NIGHT WITH EYES CLOSED CHEST RISE EQUAL BILAT. TWO GUARDS PRESENT IN ROOM AT THIS TIME, PT HAS CALL LIGHT IN REACH.
--- NOTE | 2025-02-01 08:45 | NUR ---
TWO [facility]URR CONTACTED TO MAKE AWARE OF DISCHARGE. AWAITING ORDERS FROM DR. ALVARADO. PATIENT DOES NOT USE OXYGEN AT [facility].
[2025-02-01] MEDS ORDERED: IBUPROFEN600 MG PO (08:48)
[2025-02-01] MEDS ORDERED: ACETAMINOPHEN500 MG PO (08:48)
[2025-02-01] MEDS ORDERED: FAMOTIDINE20 MG PO (08:49)
[2025-02-01] MEDS ORDERED: HYDROMORPHONE HC2 MG PO (08:49)
--- NOTE | 2025-02-01 09:09 | NUR ---
PT CURRENTLY AMBULATING THE HALLS AT THIS TIME WITH TWO EOCI GUARDS. PT IS BEHAVING THEMSELVES AND HAS NO CONCERNS AT THIS TIME. PT IS HAPPY TO BE DC'D TODAY.
--- NOTE | 2025-02-01 09:10 | NUR ---
LINEN CHANGE WHEN PT WAS WALKING LAPS, TWO SECURITY GUARDS WERE WITH THE PT WHILE WALKING, SAFETY PROTOCALS USED AT ALL TIMES. CALL LIGHT ON BED WHEN PT RETURNED TO ROOM.
--- NOTE | 2025-02-01 09:31 | NUR ---
PT REPORTED PAIN 8-10 WHILE WALKING PAST THE NURSES STATION WITH TWO EOCI GUARDS. PT RETURNED TO ROOM AND WAS GIVEN PRN DILAUDID (SEE EMAR). PT HAS NO OTHER CONCERNS AT THIS TIME AND HAS CALL LIGHT IN REACH.
[2025-02-01 10:00] VITALS: BP 122/72
[2025-02-01 10:42] VITALS: BP 122/72
--- NOTE | 2025-02-01 10:43 | NUR ---
PT WAS UP WALKING, HE REPORTS THAT WALKING HELPS HIS PAIN LEVEL. i ASKED HIM TO COME BACK TO HIS ROOM TO GET VITALS. PT REPORTED HE RECIEVED PAIN MEDICATION ABOUT 30 MINUTES PRIOR, STILL IN PAIN. SOON VITALS WERE TAKEN PT GOT UP TO CONTINUE WALKING. TWO OFFICERS IN ROOM AT ALL TIMES, AND SAFETY PROTOCALS IN PLACE AT ALL TIMES. CALL LIGHT ON BED FOR WHEN PT RETURNS TO ROOM.
--- NOTE | 2025-02-01 11:04 | NUR ---
PT WALKING LAPS AROUND THE MED SURGE FLOOR WITH TWO CORRECTIONAL OFFICERS WALKING WITH HIM. gOT PT FRESH ICE WATER, IN PT'S ROOM. CALL LIGHT ON THE BED FOR WHEN PT RETURNS TO ROOM.
--- NOTE | 2025-02-01 11:23 | NUR ---
PT CONTINUES TO AMBULATE THE HALLS WITH TWO EOCI GUARDS PRESENT. PT HAS NO CONCERNS.
--- NOTE | 2025-02-01 11:40 | NUR ---
PT RETURNED TO BED AFTER WALKING MANY LAPS AROUND THE UNIT. PT HAD QUESTIONS ABOUT RECOVERY AND WAS EDUCATED ON SURGICAL SITE CARE. PT HAS NO CONCERNS AT THIS TIME AND HAS CALL LIGHT IN REACH. PT DENIES NEED FOR PAIN MEDICATION CURRENTLY.
[2025-02-01] MEDS ORDERED: METAMUCIL FIBE3.4 GM PO (13:16)
[2025-02-01 13:39] VITALS: BP 135/87
--- NOTE | 2025-02-01 13:50 | NUR ---
PT USED CALL LIGHT AND SAID SOMETHING DID NOT FEEL RIGHT, PT RECTUM HAD SLIGHTLY PROLAPSED, THIS RN TRIED TO CONTACT MD ALVARADO, BUT PHONE RANG [employer] VOICE MAIL. PT MEDICATED WITH PRN DILUDID AT THIS TIME (SEE EMAR). PT HAS NO CURRENT CONCERNS OTHER THEN THE RECTUM AND HAS CALL LIGHT IN REACH.
[2025-02-01 14:00] VITALS: BP 123/70
[2025-02-01 14:26] VITALS: BP 123/70
--- NOTE | 2025-02-01 14:28 | NUR ---
GOT PT FRESH ICE WATER AND TWO NEW PAIR SOCKS, THE PAIR HE HAS BEEN WEARING WERE DIRTY DUE TO WALKING A LOT. PT REPORTED BOWEL MOVEMENT, AND STATED HE PROLAPSED AGAIN. PT'S NURSE WAS TOLD AND HE SAID HE WAS GOING TO REPORT THIS TO DR. ALVARADO. CALL LIGHT WITHIN REACH, TWO OFFICERS IN THE ROOM, SAFETY PROTOCALS IN USE THROUGHOUT.
--- NOTE | 2025-02-01 15:10 | NUR ---
THIS RN SPOKE WITH MD ALVARADO AND NOTIFIED HIM THAT THE PT HAD POSSIBLY PROLAPSED THEIR RECTUM AGAIN. PT CONDITION WAS DESCRIBED TO MD ALVARADO AND JENNY STATED THAT THIS WAS THE PT HEMMOROIDS WERE WHAT WAS SHOWING AND GAVE THE GO AHEAD TO DC PATIENT. PT WAS AGREEABLE.
--- NOTE | 2025-02-03 15:03 | PATH ---
[facility] [address] [place] [address] Signed SPECIMEN(S): A SIGMOID AND PORTION OF RECTUM SPECIMEN SOURCE: A. SIGMOID AND PORTION OF RECTUM CLINICAL HISTORY: Rectal prolapse FINAL PATHOLOGIC DIAGNOSIS: Sigmoid and portion of rectum: - Segment of benign colon, negative for atypical epithelial features or pathologic inflammation. [email or web address]:eriberto MICROSCOPIC EXAMINATION: Histologic sections of all submitted blocks are examined by light microscopy. These findings, together with the gross examination, support the pathologic diagnosis. GROSS DESCRIPTION: The specimen, labeled and designated "Shilpi, O., redundant sigmoid and portion of rectum per requisition," is received in formalin and consists of a 36.2 cm in length by 6.5 cm in circumference previously opened segment of colon with rectum. The serosa is enciso-pink and smooth with moderate amount of attached yellow lobulated adipose. The mesorectal envelope appears to have been intact. Mucosa is enciso with intact mucosal folds. There are no apparent diverticula. There are no masses or polyps. Acid Recovery Operator sections are submitted as follows: Cassette Summary: (A1) sigmoid margin (A2) rectal margin (A3) mucosa AA (under the direct supervision of a pathologist) The Gross Description was prepared using a voice recognition system. The report was reviewed for accuracy; however, sound-alike word errors, addition and/or deletions may occur. If there is any question about this report, please contact Client Services. PERFORMING LABORATORY: Technical component was performed by [email or web address], Bubba Kincaid, PATIENT NAME: SANDY THOMAS PATHOLOGY DATE OF : 89 REPORT #: [id number] PHYSICIAN: JOSÉ MIGUEL RICHMOND PCP: [facility] CORRECTIONAL REPORT IS CONFIDENTIAL AND NOT TO BE RELEASED WITHOUT AUTHORIZATION [address], [place] [address] [place] [address] (CLIA# [id number]). Professional interpretation was performed by [facility] - [address] [address] (CLIA#: [id number]). Diagnostician: Thanh Ray MD Pathologist Electronically Signed 02/03/2025 Copies: ~ PATIENT NAME: SANDY THOMAS PATHOLOGY DATE OF : [birth year] REPORT #: [id number] PHYSICIAN: JOSÉ MIGUEL RICHMOND PCP: [facility] CORRECTIONAL REPORT IS CONFIDENTIAL AND NOT TO BE RELEASED WITHOUT AUTHORIZATION
== END 2025-02-01 15:25 | disposition home or self-care (01) ==
LOC: MS 08:40 → DS 08:40 → DSVR 08:40 → EDSTATUS 12:30 → MS 12:30 → DSVR 19:00 → DS 19:00 → MS 19:00
PROVIDERS: ADMIT Surgery; ATTEND Surgery
PROC: 0D1E0ZP Bypass Large Intestine to Rectum, Open Approach (ICD-10-PCS; 2025-01-29)
PROC: 0DQP0ZZ Repair Rectum, Open Approach (ICD-10-PCS; principal; 2025-01-29 12:30)
DX: K62.3 Rectal prolapse (principal); K63.89 Other specified diseases of intestine; Z79.899 Other long term (current) drug therapy; Z88.8 Allergy status to other drugs, medicaments and biological substances
CPT/HCPCS: 00840; 36415; 76942; 80048; 85025; 94640; 94667; 94668; 94760; 94762; A9270; J0131; J0690; J1100; J1171; J1644; J1650; J1885; J2003; J2060; J2270; J2405; J2704; J2795; J3010; J3475; J3490; J7121

== ENCOUNTER 2025-02-13 15:16 | Emergency (ER) | payer OTHER ==
[~2025-02-13] VITALS: Ht 165.1 cm; Wt 85.7 kg
[~2025-02-13 15:16] MED LIST changes: +ACETAMINOPHEN500 MG PO; -CEFAZOLIN SODIUM 2 GM/20 ML SYR IV SCH; +FAMOTIDINE20 MG PO; -HEParin SOD (PORCINE) 5,000 UNIT/ML SDV SUB-Q SCH; +HYDROMORPHONE HC2 MG PO; -IBLOOD GLUCOSE TEST STRIP 1 EA TEST VI PRN; +IBUPROFEN600 MG PO; -LACTATED RINGER'S 1,000 ML IV SCH; -LIDOCAINE HCL 1% 5 ML SDV INJ ONE; +METAMUCIL FIBE3.4 GM PO; -metroNIDAZOLE/SODIUM CHLORIDE 500 MG/100 ML PIGGYBACK IV SCH
[2025-02-13 16:10] LABS: EOSINOPHILS 3.3 % (0.8-7.0); HEMATOCRIT 41.3 % (40.1-51.0); LYMPHOCYTES 23.8 % (21.8-53.1); MCH 30.8 PG (25.7-32.2); MCHC 33.9 g/dL (32.3-36.5); MONOCYTES 6.6 % (5.3-12.2); PLATELET COUNT 411 K/uL (163-337); RBC 4.54 M/uL (4.63-6.08)
[2025-02-13 16:20] LABS: ALBUMIN 3.8 g/dL (3.4-5.0); ALBUMIN/GLOBULIN RATIO 1.19 (1.1-2.4); ANION GAP 13.1 (7-21); BILIRUBIN, TOTAL 0.4 mg/dL (0.2-1.0); BUN/CREATININE RATIO 11.22 (6.0-28.6); CALCIUM 8.7 mg/dL (8.5-10.1); CREATININE, SERUM 0.98 mg/dL (0.70-1.30); POTASSIUM 4.1 mmol/L (3.5-5.1)
[2025-02-13 17:58] VITALS: BP 146/91
== END 2025-02-13 17:55 | disposition home or self-care (01) ==
LOC: ED 15:16
PROVIDERS: Emergency Medicine
DX: K64.8 Other hemorrhoids (principal); Z79.899 Other long term (current) drug therapy; Z91.018 Allergy to other foods; Z88.8 Allergy status to other drugs, medicaments and biological substances
CPT/HCPCS: 36415; 74177; 80053; 83690; 85025; 99284-25; Q9967

== ENCOUNTER 2025-04-27 18:55 | Emergency (ER) | payer OTHER ==
[~2025-04-27] VITALS: Ht 165.1 cm; Wt 87.2 kg
[2025-04-27 20:55] VITALS: BP 130/83
== END 2025-04-27 20:55 | disposition other institution, planned readmission (95) ==
LOC: ED 18:55
DX: R10.31 Right lower quadrant pain (principal); J45.909 Unspecified asthma, uncomplicated; Z98.890 Other specified postprocedural states; Z88.8 Allergy status to other drugs, medicaments and biological substances; Z91.018 Allergy to other foods; Z79.899 Other long term (current) drug therapy
CPT/HCPCS: 99284